=== PATIENT | female | born 1975 | race Caucasian/White ===

== ENCOUNTER 2016-07-17 13:42 | Emergency (ER) | payer MEDICAID, OTHER ==
[~2016-07-17] VITALS: Ht 175.3 cm; Wt 95.0 kg
[~2016-07-17 13:42] MED LIST: LORA1TAB3 PO
[2016-07-17] MEDS ORDERED: ALBU8.5H IH (14:16)
[2016-07-17] MEDS ORDERED: GUAIFDM120 PO (14:16)
[2016-07-17] MEDS ORDERED: SEIZURE MED PO (14:16)
[2016-07-17] MEDS ORDERED: ALBUTEROL SULFATE 5 MG/ML 20 ML NEB SOLN [BULK] NEB ONE (14:45)
[2016-07-17] MEDS ORDERED: IPRATROPIUM BROMIDE 0.5 MG/2.5 ML NEB SOLUTION NEB ONE (14:45)
[2016-07-17] MEDS ORDERED: ACETAMINOPHEN 325 MG TABLET PO ONE (15:00)
[2016-07-17 16:24] LABS: B-TYPE NATRIURETIC PEPTIDE 10 pg/mL (0-100)
[2016-07-17 16:37] LABS: CREATINE KINASE MB 0.5 ng/mL (0-5); CREATINE KINASE, TOTAL 95 U/L (26-192)
[2016-07-17] MEDS ORDERED: DEXAMETHASONE SOD PHOS 4 MG/ML VIAL IM ONE (16:45)
[2016-07-17 17:22] VITALS: BP 125/87
== END 2016-07-17 17:27 | disposition home or self-care (01) ==
LOC: EMS 13:42
DX: J40 Bronchitis, not specified as acute or chronic (principal); J06.9 Acute upper respiratory infection, unspecified; F17.210 Nicotine dependence, cigarettes, uncomplicated; Z88.6 Allergy status to analgesic agent; Z88.1 Allergy status to other antibiotic agents; Z91.018 Allergy to other foods
CPT/HCPCS: 36415; 71020; 82550; 82553; 83880; 84484; 93005; 94640; 96372; 99285; 99406; J1100; J7611

== ENCOUNTER 2018-11-25 01:19 | Inpatient (IN) | payer MEDICAID, OTHER ==
[~2018-11-25] VITALS: Ht 175.3 cm; Wt 99.6 kg
[~2018-11-25 01:19] MED LIST changes: +ALBU8.5H8 IH; +GUAIFDM120 PO; +SEIZURE MED PO
[2018-11-25] MEDS ORDERED: SERT100T12 PO (01:31)
[2018-11-25] MEDS ORDERED: ASPI81 PO (01:31)
[2018-11-25] MEDS ORDERED: CARB200T6 PO (01:31)
[2018-11-25] MEDS ORDERED: NAPR-1025 PO (01:31)
[2018-11-25 02:09] LABS: BASOPHILS % (AUTO) 0.7 % (0.0-2.0); EOSINOPHILS % (AUTO) 1.2 % (1.0-6.0); HEMATOCRIT 37.7 % (36-46); HEMOGLOBIN 12.8 g/dL (12.0-16.0); LYMPHOCYTES # (AUTO) 2.4 K/uL (1.0-4.8); MEAN CORPUSCULAR HEMOGLOBIN 29.7 pg (26.0-34.0); MEAN CORPUSCULAR HGB CONC 33.8 G/dL (31.0-37.0); MEAN CORPUSCULAR VOLUME 88 fL (80-100); MONOCYTES # (AUTO) 0.4 K/uL (0.1-1.0); MONOCYTES % (AUTO) 5.2 % (2.0-9.0); NEUTROPHILS # (AUTO) 5.4 K/uL (1.8-7.7); NEUTROPHILS % (AUTO) 63.9 % (40.0-70.0); PLATELET COUNT (AUTO) 288 K/uL (150-450); RED BLOOD CELL COUNT(AUTO) 4.29 MIL/uL (4.00-5.20); RED CELL DISTRIBUTION WIDTH 12.9 % (11.5-14.5)
[2018-11-25 02:21] LABS: ANION GAP 10 mmol/L (8-16); CALCIUM, TOTAL 9.6 mg/dL (8.8-10.5); CARBON DIOXIDE 26 mmol/L (22-29); CHLORIDE 106 mmol/L (98-107); CREATININE 0.83 mg/dL (0.60-1.30); GLOMERULAR FILTR. RATE CALC > 60 mL/min (>60); GLUCOSE,RANDOM 95 mg/dL (70-110); POTASSIUM 3.5 mmol/L (3.5-5.1); SODIUM SERUM 142 mmol/L (136-145); UREA NITROGEN, BLOOD 17 mg/dL (7-18)
[2018-11-25 02:33] LABS: ALANINE AMINOTRANSFERASE 112 U/L (12-78); ALBUMIN 4.4 g/dL (3.4-5.0); ALKALINE PHOSPHATASE 163 U/L (46-116); ASPARTATE AMINOTRANSFERASE 39 U/L (15-37); BILIRUBIN,TOTAL 0.3 mg/dL (0.1-1.0); CARBAMAZEPINE (TEGRETOL) 7.3 mcg/mL (4.0-12.0); HCG,QUANTITATIVE 7 mIU/mL (0-6); TOTAL PROTEIN, SERUM 7.5 g/dL (6.4-8.2)
[2018-11-25 04:07] VITALS: BP 100/61
[2018-11-25] MEDS ORDERED: HALOPERIDOL 5 MG TABLET PO PRN (04:15)
[2018-11-25] MEDS ORDERED: ZOLPIDEM TARTRATE 10 MG TABLET PO PRN (04:15)
[2018-11-25] MEDS ORDERED: LORazepam 2 MG TABLET PO PRN (04:15)
[2018-11-25 07:42] VITALS: BP 107/73
[2018-11-25] MEDS ORDERED: ALBUTEROL SULFATE HFA 90 MCG/PUFF 8 GM INHALER IH PRN (11:30)
[2018-11-25] MEDS ORDERED: LOPERAMIDE HCL 2 MG CAPSULE PO PRN (11:30)
[2018-11-25] MEDS ORDERED: NICOTINE 14 MG/24 HOUR PATCH TD PRN (11:30)
[2018-11-25] MEDS ORDERED: MAG HYDROX/AL HYDROX/SIMETH ES 30 ML SUSPENSION UDCUP PO PRN (11:30)
[2018-11-25] MEDS ORDERED: GuaiFENesin/D-METHORPHAN [SUGAR-FREE] 200-20MG/10 ML SYRUP UDCUP PO PRN (11:30)
[2018-11-25] MEDS ORDERED: CloNIDine HCL 0.1 MG TABLET PO PRN (11:30)
[2018-11-25] MEDS ORDERED: PETROLATUM,WHITE 28 GM JELLY TP PRN (11:30)
[2018-11-25 11:52] VITALS: BP 104/68
[2018-11-25] MEDS: CarBAMazepine 200 MG TABLET PO SCH ×2 (13:12→21:29)
[2018-11-25 15:54] VITALS: BP 104/54
[2018-11-25] MEDS: VENLAFAXINE HCL 150 MG ER CAPSULE PO SCH (16:10)
[2018-11-25] MEDS: BusPIRone HCL 5 MG TABLET PO SCH ×2 (16:10→21:29)
[2018-11-25 16:30] LABS: AMPHET/METH SCREEN,URINE NEGATIVE (NEGATIVE); BARBITURATE SCREEN, URINE NEGATIVE (NEGATIVE); BENZODIAZEPINES SCREEN,URINE NEGATIVE (NEGATIVE); CANNABINOID SCREEN,URINE NEGATIVE (NEGATIVE); COCAINE SCREEN,URINE NEGATIVE (NEGATIVE); METHADONE SCREEN, URINE NEGATIVE (NEGATIVE); OPIATE SCREEN,URINE NEGATIVE (NEGATIVE); PHENCYCLIDINE SCREEN,URINE NEGATIVE (NEGATIVE)
[2018-11-25 16:34] LABS: APPEARANCE,URINE CLEAR (CLEAR); BILIRUBIN,URINE NEGATIVE (NEGATIVE); GLUCOSE, URINE (UA) NEGATIVE (NEGATIVE); KETONES,URINE NEGATIVE (NEGATIVE); LEUKOCYTE ESTERASE ,URINE NEGATIVE (NEGATIVE); NITRATE,URINE NEGATIVE (NEGATIVE); OCCULT BLOOD,URINE NEGATIVE (NEGATIVE); PROTEIN,URINE NEGATIVE (NEGATIVE); UROBILINOGEN,URINE 0.2 mg/dL (<=1.0)
[2018-11-25] MEDS: ACETAMINOPHEN 325 MG TABLET PO PRN (18:52)
[2018-11-25 20:11] VITALS: BP 98/49
[2018-11-25] MEDS ORDERED: CarBAMazepine 200 MG TABLET PO SCH (21:00)
[2018-11-26] VITALS (7 sets, daily range): BP systolic 98–109; BP diastolic 53–70
[2018-11-26] MEDS: BusPIRone HCL 5 MG TABLET PO SCH ×3 (08:35→20:05)
[2018-11-26] MEDS: ASPIRIN 81 MG CHEWABLE TABLET PO SCH (08:35)
[2018-11-26] MEDS: VENLAFAXINE HCL 150 MG ER CAPSULE PO SCH (08:35)
[2018-11-26] MEDS: CarBAMazepine 200 MG TABLET PO SCH ×2 (08:35→20:05)
[2018-11-26] MEDS ORDERED: HydrOXYzine PAMOATE 50 MG CAPSULE PO PRN (13:00)
[2018-11-26] MEDS: TraZODone HCL 50 MG TABLET PO PRN (20:05)
[2018-11-26] MEDS: ACETAMINOPHEN 325 MG TABLET PO PRN (23:52)
[2018-11-26] MEDS: ONDANSETRON HCL 4 MG TABLET PO PRN (23:52)
[2018-11-27 04:00] VITALS: BP 100/74
[2018-11-27 08:04] VITALS: BP 105/59
[2018-11-27] MEDS: CarBAMazepine 200 MG TABLET PO SCH ×2 (08:10→21:19)
[2018-11-27] MEDS: VENLAFAXINE HCL 150 MG ER CAPSULE PO SCH (08:11)
[2018-11-27] MEDS: BusPIRone HCL 5 MG TABLET PO SCH ×3 (08:11→21:19)
[2018-11-27] MEDS: ASPIRIN 81 MG CHEWABLE TABLET PO SCH (08:11)
[2018-11-27 11:36] VITALS: BP 104/59
[2018-11-27 15:41] VITALS: BP 101/62
[2018-11-27 21:06] VITALS: BP 101/61
[2018-11-28] VITALS (7 sets, daily range): BP systolic 96–106; BP diastolic 55–69
[2018-11-28] MEDS: CarBAMazepine 200 MG TABLET PO SCH ×2 (08:42→20:54)
[2018-11-28] MEDS: ASPIRIN 81 MG CHEWABLE TABLET PO SCH (08:42)
[2018-11-28] MEDS: BusPIRone HCL 5 MG TABLET PO SCH ×2 (08:42→20:55)
[2018-11-28] MEDS: VENLAFAXINE HCL 150 MG ER CAPSULE PO SCH (08:42)
[2018-11-28] MEDS: BusPIRone HCL 10 MG TABLET PO SCH ×2 (16:10→20:55)
[2018-11-28] MEDS: TraZODone HCL 50 MG TABLET PO PRN (22:21)
[2018-11-29 05:43] VITALS: BP 94/62
[2018-11-29 07:19] VITALS: BP 96/67
[2018-11-29] MEDS: CarBAMazepine 200 MG TABLET PO SCH ×2 (09:28→20:09)
[2018-11-29] MEDS: BusPIRone HCL 10 MG TABLET PO SCH ×3 (09:28→20:09)
[2018-11-29] MEDS: VENLAFAXINE HCL 75 MG ER CAPSULE PO SCH (09:28)
[2018-11-29] MEDS: ASPIRIN 81 MG CHEWABLE TABLET PO SCH (09:28)
[2018-11-29 11:08] VITALS: BP 102/64
[2018-11-29 16:12] VITALS: BP 106/64
[2018-11-29 20:00] VITALS: BP 110/66
[2018-11-29] MEDS: MAGNESIUM HYDROXIDE SUSPENSION 30 ML UDCUP PO PRN (20:09)
[2018-11-29 23:45] VITALS: BP 101/72
[2018-11-30 03:00] VITALS: BP 97/68
[2018-11-30 07:40] VITALS: BP 101/61
[2018-11-30] MEDS: BusPIRone HCL 10 MG TABLET PO SCH ×3 (08:32→21:01)
[2018-11-30] MEDS: VENLAFAXINE HCL 75 MG ER CAPSULE PO SCH (08:32)
[2018-11-30] MEDS: CarBAMazepine 200 MG TABLET PO SCH ×2 (08:32→21:01)
[2018-11-30] MEDS: ASPIRIN 81 MG CHEWABLE TABLET PO SCH (08:32)
[2018-11-30 11:16] VITALS: BP 95/60
[2018-11-30] MEDS: ACETAMINOPHEN 325 MG TABLET PO PRN (12:36)
[2018-11-30 15:10] VITALS: BP 106/58
[2018-11-30 19:54] VITALS: BP 111/67
[2018-11-30] MEDS: TraZODone HCL 50 MG TABLET PO PRN (21:05)
[2018-11-30 23:22] VITALS: BP 108/62
[2018-12-01 06:20] VITALS: BP 100/66
[2018-12-01] MEDS: VENLAFAXINE HCL 75 MG ER CAPSULE PO SCH (08:20)
[2018-12-01] MEDS: BusPIRone HCL 10 MG TABLET PO SCH ×3 (08:21→20:37)
[2018-12-01] MEDS: ASPIRIN 81 MG CHEWABLE TABLET PO SCH (08:21)
[2018-12-01] MEDS: CarBAMazepine 200 MG TABLET PO SCH ×2 (08:21→20:37)
[2018-12-01 11:58] VITALS: BP 99/60
[2018-12-01 15:11] VITALS: BP 100/56
[2018-12-01 19:38] VITALS: BP 94/54
[2018-12-01] MEDS ORDERED: RisperiDONE 1 MG TABLET PO SCH (21:00)
[2018-12-01] MEDS: TraZODone HCL 50 MG TABLET PO PRN (23:01)
[2018-12-01 23:09] VITALS: BP 113/62
[2018-12-02 05:46] VITALS: BP 92/54
[2018-12-02 07:26] VITALS: BP 91/53
[2018-12-02] MEDS: ASPIRIN 81 MG CHEWABLE TABLET PO SCH (09:24)
[2018-12-02] MEDS: BusPIRone HCL 10 MG TABLET PO SCH ×3 (09:24→21:17)
[2018-12-02] MEDS: CarBAMazepine 200 MG TABLET PO SCH ×2 (09:25→21:17)
[2018-12-02] MEDS: VENLAFAXINE HCL 75 MG ER CAPSULE PO SCH (09:25)
[2018-12-02 11:19] VITALS: BP 100/61
[2018-12-02 15:03] VITALS: BP 103/54
[2018-12-02 19:48] VITALS: BP 99/62
[2018-12-02] MEDS: RisperiDONE 2 MG TABLET PO SCH (21:18)
[2018-12-02] MEDS: TraZODone HCL 50 MG TABLET PO PRN (22:58)
[2018-12-02 23:35] VITALS: BP 141/58
[2018-12-03 04:15] VITALS: BP 109/57
[2018-12-03 07:39] VITALS: BP 95/58
[2018-12-03 08:18] LABS: BASOPHILS % (AUTO) 0.6 % (0.0-2.0); EOSINOPHILS % (AUTO) 4.2 % (1.0-6.0); HEMATOCRIT 36.7 % (36-46); HEMOGLOBIN 12.4 g/dL (12.0-16.0); LYMPHOCYTES # (AUTO) 2.2 K/uL (1.0-4.8); LYMPHOCYTES % (AUTO) 45.8 % (22.0-44.0); MEAN CORPUSCULAR HEMOGLOBIN 29.6 pg (26.0-34.0); MEAN CORPUSCULAR HGB CONC 33.8 G/dL (31.0-37.0); MEAN CORPUSCULAR VOLUME 88 fL (80-100); MONOCYTES # (AUTO) 0.4 K/uL (0.1-1.0); MONOCYTES % (AUTO) 7.3 % (2.0-9.0); NEUTROPHILS % (AUTO) 42.1 % (40.0-70.0); PLATELET COUNT (AUTO) 230 K/uL (150-450); RED CELL DISTRIBUTION WIDTH 12.9 % (11.5-14.5)
[2018-12-03 08:28] LABS: ANION GAP 7 mmol/L (8-16); CALCIUM, TOTAL 9.3 mg/dL (8.8-10.5); CARBON DIOXIDE 29 mmol/L (22-29); CHLORIDE 103 mmol/L (98-107); CREATININE 0.87 mg/dL (0.60-1.30); GLOMERULAR FILTR. RATE CALC > 60 mL/min (>60); GLUCOSE,RANDOM 83 mg/dL (70-110); POTASSIUM 3.9 mmol/L (3.5-5.1); SODIUM SERUM 139 mmol/L (136-145); UREA NITROGEN, BLOOD 18 mg/dL (7-18)
[2018-12-03] MEDS: VENLAFAXINE HCL 75 MG ER CAPSULE PO SCH (08:36)
[2018-12-03] MEDS: CarBAMazepine 200 MG TABLET PO SCH ×2 (08:36→20:29)
[2018-12-03] MEDS: ASPIRIN 81 MG CHEWABLE TABLET PO SCH (08:37)
[2018-12-03 08:38] LABS: ALANINE AMINOTRANSFERASE 42 U/L (12-78); ALBUMIN 3.7 g/dL (3.4-5.0); ALKALINE PHOSPHATASE 131 U/L (46-116); ASPARTATE AMINOTRANSFERASE 22 U/L (15-37); BILIRUBIN,TOTAL 0.2 mg/dL (0.1-1.0); TOTAL PROTEIN, SERUM 6.6 g/dL (6.4-8.2)
[2018-12-03] MEDS: BusPIRone HCL 10 MG TABLET PO SCH ×3 (08:39→20:29)
[2018-12-03 11:02] VITALS: BP 92/56
[2018-12-03 15:26] VITALS: BP 98/72
[2018-12-03] MEDS: RisperiDONE 2 MG TABLET PO SCH (20:29)
[2018-12-03 20:30] VITALS: BP 102/66
[2018-12-03 22:46] VITALS: BP 108/56
[2018-12-03] MEDS: TraZODone HCL 50 MG TABLET PO PRN (22:47)
[2018-12-04 06:10] VITALS: BP 95/58
[2018-12-04 07:25] VITALS: BP 93/71
[2018-12-04] MEDS: CarBAMazepine 200 MG TABLET PO SCH ×2 (07:54→20:49)
[2018-12-04] MEDS: BusPIRone HCL 10 MG TABLET PO SCH ×3 (07:54→20:49)
[2018-12-04] MEDS: ASPIRIN 81 MG CHEWABLE TABLET PO SCH (07:54)
[2018-12-04] MEDS: VENLAFAXINE HCL 75 MG ER CAPSULE PO SCH (07:54)
[2018-12-04] MEDS: DOCUSATE SODIUM 100 MG CAPSULE PO PRN (07:54)
[2018-12-04 12:13] VITALS: BP 112/60
[2018-12-04] MEDS ORDERED: OMEPRAZOLE 20 MG CAPSULE PO ONE (13:00)
[2018-12-04] MEDS: NAPROXEN 500 MG TABLET PO SCH ×2 (14:08→20:49)
[2018-12-04 16:06] VITALS: BP 93/55
[2018-12-04] MEDS: MAGNESIUM HYDROXIDE SUSPENSION 30 ML UDCUP PO PRN (16:37)
[2018-12-04 19:22] VITALS: BP 102/69
[2018-12-04] MEDS: RisperiDONE 2 MG TABLET PO SCH (20:49)
[2018-12-04] MEDS ORDERED: SODIUM PHOS/SODIUM BIPHOS 133 ML ENEMA PR PRN (23:00)
[2018-12-04 23:32] VITALS: BP 115/71
[2018-12-05 05:30] VITALS: BP 102/59
[2018-12-05 07:46] VITALS: BP 96/54
[2018-12-05] MEDS: NAPROXEN 500 MG TABLET PO SCH ×2 (10:05→17:40)
[2018-12-05] MEDS: VENLAFAXINE HCL 75 MG ER CAPSULE PO SCH (10:05)
[2018-12-05] MEDS: BusPIRone HCL 10 MG TABLET PO SCH ×3 (10:05→21:01)
[2018-12-05] MEDS: OMEPRAZOLE 20 MG CAPSULE PO SCH (10:06)
[2018-12-05] MEDS: CarBAMazepine 200 MG TABLET PO SCH ×2 (10:06→21:02)
[2018-12-05] MEDS: ASPIRIN 81 MG CHEWABLE TABLET PO SCH (10:06)
[2018-12-05 11:27] VITALS: BP 101/60
[2018-12-05] MEDS: RisperiDONE 2 MG TABLET PO SCH ×2 (11:42→21:02)
[2018-12-05] MEDS: ACETAMINOPHEN 325 MG TABLET PO PRN (18:48)
[2018-12-05 19:32] VITALS: BP 99/61
[2018-12-05] MEDS ORDERED: RisperiDONE 2 MG TABLET PO SCH (21:00)
[2018-12-05] MEDS: DOCUSATE SODIUM 100 MG CAPSULE PO PRN (21:01)
[2018-12-05 23:15] VITALS: BP 100/61
[2018-12-06 08:01] VITALS: BP 95/58
[2018-12-06] MEDS: ASPIRIN 81 MG CHEWABLE TABLET PO SCH (08:29)
[2018-12-06] MEDS: OMEPRAZOLE 20 MG CAPSULE PO SCH (08:30)
[2018-12-06] MEDS: NAPROXEN 500 MG TABLET PO SCH ×2 (08:30→17:45)
[2018-12-06] MEDS: BusPIRone HCL 10 MG TABLET PO SCH ×3 (08:30→20:59)
[2018-12-06] MEDS: RisperiDONE 2 MG TABLET PO SCH ×2 (08:31→20:59)
[2018-12-06] MEDS: CarBAMazepine 200 MG TABLET PO SCH ×2 (08:31→20:59)
[2018-12-06] MEDS: VENLAFAXINE HCL 75 MG ER CAPSULE PO SCH (08:31)
[2018-12-06 13:34] VITALS: BP 104/63
[2018-12-06 16:07] VITALS: BP 101/61
[2018-12-06 20:14] VITALS: BP 111/66
[2018-12-06 23:40] VITALS: BP 109/59
[2018-12-07] MEDS: TraZODone HCL 50 MG TABLET PO PRN (01:09)
[2018-12-07 06:49] VITALS: BP 117/69
[2018-12-07] MEDS: BusPIRone HCL 10 MG TABLET PO SCH ×3 (08:05→21:32)
[2018-12-07] MEDS: CarBAMazepine 200 MG TABLET PO SCH ×2 (08:05→21:32)
[2018-12-07] MEDS: VENLAFAXINE HCL 75 MG ER CAPSULE PO SCH (08:05)
[2018-12-07] MEDS: OMEPRAZOLE 20 MG CAPSULE PO SCH (08:05)
[2018-12-07] MEDS: NAPROXEN 500 MG TABLET PO SCH (08:05)
[2018-12-07] MEDS: ONDANSETRON HCL 4 MG TABLET PO PRN ×2 (08:05→15:30)
[2018-12-07] MEDS: RisperiDONE 2 MG TABLET PO SCH ×2 (08:05→21:32)
[2018-12-07] MEDS: ASPIRIN 81 MG CHEWABLE TABLET PO SCH (08:05)
[2018-12-07] MEDS ORDERED: PredniSONE 20 MG TABLET PO ONE (11:00)
[2018-12-07] MEDS ORDERED: DiphenhydrAMINE/ZINC ACET 30 GM CREAM TP PRN (11:00)
[2018-12-07 11:44] VITALS: BP 110/71
[2018-12-07 11:53] LABS: BASOPHILS % (AUTO) 0.3 % (0.0-2.0); EOSINOPHILS % (AUTO) 2.2 % (1.0-6.0); HEMATOCRIT 38.8 % (36-46); HEMOGLOBIN 12.9 g/dL (12.0-16.0); LYMPHOCYTES # (AUTO) 0.4 K/uL (1.0-4.8); LYMPHOCYTES % (AUTO) 5.4 % (22.0-44.0); MEAN CORPUSCULAR HEMOGLOBIN 29.5 pg (26.0-34.0); MEAN CORPUSCULAR HGB CONC 33.3 G/dL (31.0-37.0); MEAN CORPUSCULAR VOLUME 89 fL (80-100); MONOCYTES # (AUTO) 0.3 K/uL (0.1-1.0); MONOCYTES % (AUTO) 3.9 % (2.0-9.0); NEUTROPHILS # (AUTO) 6.1 K/uL (1.8-7.7); PLATELET COUNT (AUTO) 212 K/uL (150-450); RED BLOOD CELL COUNT(AUTO) 4.38 MIL/uL (4.00-5.20)
[2018-12-07 12:04] LABS: NEUTROPHILS % (AUTO) 88.2 % (40.0-70.0)
[2018-12-07 12:27] LABS: ALANINE AMINOTRANSFERASE 25 U/L (12-78); ALBUMIN 3.8 g/dL (3.4-5.0); ALKALINE PHOSPHATASE 115 U/L (46-116); ANION GAP 11 mmol/L (8-16); ASPARTATE AMINOTRANSFERASE 16 U/L (15-37); BILIRUBIN,TOTAL 0.3 mg/dL (0.1-1.0); CALCIUM, TOTAL 9.1 mg/dL (8.8-10.5); CARBON DIOXIDE 29 mmol/L (22-29); CHLORIDE 101 mmol/L (98-107); CREATININE 0.92 mg/dL (0.60-1.30); GLOMERULAR FILTR. RATE CALC > 60 mL/min (>60); GLUCOSE,RANDOM 107 mg/dL (70-110); SODIUM SERUM 141 mmol/L (136-145); TOTAL PROTEIN, SERUM 6.8 g/dL (6.4-8.2); UREA NITROGEN, BLOOD 22 mg/dL (7-18)
[2018-12-07] MEDS: ACETAMINOPHEN 325 MG TABLET PO PRN (15:59)
[2018-12-07 16:00] VITALS: BP 102/68
[2018-12-07 19:25] VITALS: BP 107/62
[2018-12-07 23:45] VITALS: BP 106/62
[2018-12-08 05:10] VITALS: BP 97/56
[2018-12-08 08:39] VITALS: BP 89/59
[2018-12-08] MEDS: OMEPRAZOLE 20 MG CAPSULE PO SCH (08:58)
[2018-12-08] MEDS: VENLAFAXINE HCL 75 MG ER CAPSULE PO SCH (08:58)
[2018-12-08] MEDS: ASPIRIN 81 MG CHEWABLE TABLET PO SCH (08:58)
[2018-12-08] MEDS: RisperiDONE 2 MG TABLET PO SCH (08:58)
[2018-12-08] MEDS: CarBAMazepine 200 MG TABLET PO SCH (08:59)
[2018-12-08] MEDS: BusPIRone HCL 10 MG TABLET PO SCH (09:00)
[2018-12-08] MEDS ORDERED: OMEP20 PO (10:08)
[2018-12-08] MEDS ORDERED: BUSP10TA23 PO (10:08)
[2018-12-08] MEDS ORDERED: RISP2 PO (10:09)
[2018-12-08] MEDS ORDERED: VENL-67 PO (10:09)
[2018-12-08 11:25] VITALS: BP 109/69
== END 2018-12-08 12:05 | DRG 885 ==
LOC: EMS 01:21 → 6S 03:00
PROVIDERS: ADMIT Internal Medicine; ATTEND Internal Medicine
DX: F33.3 Major depressive disorder, recurrent, severe with psychotic symptoms (principal); R45.851 Suicidal ideations; G40.909 Epilepsy, unspecified, not intractable, without status epilepticus; R74.0 Nonspecific elevation of levels of transaminase and lactic acid dehydrogenase [LDH]; F43.12 Post-traumatic stress disorder, chronic; F17.210 Nicotine dependence, cigarettes, uncomplicated; M70.32 Other bursitis of elbow, left elbow; Z59.0 Homelessness; Z90.710 Acquired absence of both cervix and uterus; Z88.1 Allergy status to other antibiotic agents; Z88.8 Allergy status to other drugs, medicaments and biological substances; Z91.018 Allergy to other foods; Z79.899 Other long term (current) drug therapy; Z79.82 Long term (current) use of aspirin; Z71.6 Tobacco abuse counseling
CPT/HCPCS: 80074; 80307; 83036; 87081; 93005; G0480; Q0162